=== PATIENT | female | born 1990 | race Caucasian/White ===

== ENCOUNTER 2018-12-17 17:15 | Outpatient (CLI) | payer OTHER | END 2018-12-17 23:59 | disposition home or self-care (01) | LOC: LAB.R 17:15 | PROVIDERS: ATTEND Physician Assistant | DX: R05 Cough (principal) | CPT/HCPCS: 87275; 87276 ==

== ENCOUNTER 2020-02-12 23:23 | Emergency (ER) | payer OTHER ==
--- NOTE | 2020-02-12 23:54 | ED Physician Documentation ---
PD HPI LOWER EXT INJURY - Stated complaint Stated Complaint: L LEG SWELLING - Chief complaint Chief Complaint: General - History obtained from History obtained from: Patient - History of Present Illness PD HPI LOW EXT INJURY LOCATION: Left, Lower leg, Thigh Type of injury: No: Fall, Twist, Blunt / blow Timing - onset: Yesterday (1-2 days) Timing - duration: Days Timing - details: Gradual onset Improved by: Rest Worsened by: Moving Associated symptoms: Swelling. No: Weakness, Numbness Similar symptoms before: Has not had sx before Review of Systems Constitutional: denies: Fever, Chills Nose: denies: Rhinorrhea / runny nose, Congestion Throat: denies: Sore throat Cardiac: denies: Chest pain / pressure, Palpitations Respiratory: denies: Dyspnea, Cough GI: denies: Nausea, Vomiting, Diarrhea : reports: Now EGA (37 weeks) PD PAST MEDICAL HISTORY - Past Medical History Past Medical History: No Cardiovascular: None Respiratory: None - Past Surgical History Past Surgical History: No - Allergies Allergies/Adverse Reactions: Allergies Allergy/AdvReac Type Severity Reaction Status Date / Time No Known Drug Allergies Allergy Verified 02/13/20 00:17 - Social History Does the pt smoke?: No Smoking Status: Never smoker Does the pt drink ETOH?: No Does the pt have substance abuse?: No - Immunizations Immunizations are current?: Yes - POLST Patient has POLST: No PD ED PE NORMAL - Vitals Vital signs reviewed: Yes - General General: Alert and oriented X 3, No acute distress, Well developed/nourished - Cardiac Cardiac: RRR, No murmur - Respiratory Respiratory: No respiratory distress, Clear bilaterally - Abdomen Abdomen: Soft, Non tender, Other (gravid with fundus almost to umbilicus c/w dates. ) - Derm Derm: Normal color, Warm and dry, No rash - Extremities Extremities: Other (There is mild edema in both lower legs and slightly more on the left. There is minimal calf tenderness on the left. There is some mild tenderness in the lower aspect of the medial thigh on the left without any rash or sores. She has good color and capillary refill and sensation in the toes and good pulses in the ankle.) - Neuro Neuro: No motor deficit, No sensory deficit Results - Vitals Vitals: Vital Signs - 24 hr 02/12/20 02/13/20 23:26 00:48 Temperature 36.6 C Heart Rate 70 67 Respiratory 14 18 Rate Blood Pressure 167/106 H 133/89 H O2 Saturation 99 99 Oxygen O2 Source Room air - Rads (name of study) duplex U/S left leg Radiology: Prelim report reviewed, See rad report (no DVT) PD MEDICAL DECISION MAKING - ED course Complexity details: re-evaluated patient (Duplex ultrasound was without any DVT.), considered differential (Left leg swelling with some cramping in the thigh area in a patient. She use coming to the ER after discussion wit h her EMBEDDED SOFTWARE PROGRAMMER for concern of DVT. We can get an ultrasound to evaluate.), d/w patient Departure - Departure Disposition: 01 Home, Self Care Clinical Impression: Leg edema, left Leg pain Qualifiers: Laterality: left Qualified Code(s): M79.605 - Pain in left leg Condition: Stable Record reviewed to determine appropriate education?: Yes Instructions: ED Strain Muscle Ext Comments: Your ultrasound is normal without any signs of blood clots. They did not berry picker machine operator another obvious abnormalities on the ultrasound either. At this point I would presume muscular strain for the thigh discomfort. The edema in the legs is common enough in . You can use some compressive stockings and elevate the leg periodically. Changing position side to side can sometimes help with return flow from the legs as well. Follow-up with your EMBEDDED SOFTWARE PROGRAMMER if not improving well over the next couple of days. Tylenol if needed for pains. Discharge Date/Time: 02/13/20 01:15
[2020-02-13 00:49] VITALS: BP 133/89
--- NOTE | 2020-02-13 00:59 | Ultrasound Report ---
Reason: left leg swelling; thigh pain; 38 w preg Procedure Date: 02/13/2020 Accession Number: [id number] / [id number] Procedure: US - Duplex Ext Veins Left CPT Code: Final Report FULL RESULT: EXAM: LEFT LOWER EXTREMITY VENOUS ULTRASOUND EXAM DATE: 02/13/2020 12:23 AM. CLINICAL HISTORY: Left leg swelling; thigh pain; 38 w preg. COMPARISON: None. TECHNIQUE: Real-time sonographic vascular imaging was performed by the pump house operator through the lower extremity utilizing both color-flow and Doppler spectral analysis. Multiple medical sales representative static images were saved for review. FINDINGS: Common Femoral Vein (CFV): Normal. CFV-GSV Junction: Normal. Profunda Femoral Vein (PFV): Normal. Femoral Vein (FV) Prox: Normal. Femoral Vein (FV) Mid: Normal. Femoral Vein (FV) Dist: Normal. Popliteal Vein: Normal. Posterior Tibial Veins: Normal. Peroneal Veins: Normal. Other: Subcutaneous edema in the calf. IMPRESSION: No evidence for deep venous thrombosis. [facility]
== END 2020-02-13 01:15 | disposition home or self-care (01) ==
LOC: ED 23:23
DX: O12.03 Gestational edema, third trimester (principal); O99.89 Other specified diseases and conditions complicating pregnancy, childbirth and the puerperium; M79.605 Pain in left leg; Z3A.37 37 weeks gestation of pregnancy
CPT/HCPCS: 99283; 99284